=== PATIENT | male | born 1945 | race Caucasian/White ===

== ENCOUNTER 2018-01-02 12:16 | Emergency (ER) | payer MEDICARE ==
[2018-01-02] MEDS: KETOROLAC 30 MG INJ IM (14:27)
[2018-01-02] MEDS: LIDOCAINE 1% (MDV) 10 ML INJ INFIL (14:29)
== END 2018-01-02 15:38 | disposition home or self-care (01) ==
LOC: FTE 12:16
DX: M25.512 Pain in left shoulder (principal); I10 Essential (primary) hypertension
CPT/HCPCS: 73030; 96372; 99284-25